=== PATIENT | male | born 1980 | race Two or more races ===

== ENCOUNTER 2017-02-15 18:17 | Emergency (ER) | payer MEDICAID ==
[~2017-02-15] VITALS: Ht 170.2 cm; Wt 74.8 kg
[2017-02-15 18:17] VITALS: BP 169/117
[~2017-02-15 18:17] MED LIST: DIPH25CA83 PO
[2017-02-15] MEDS ORDERED: LIDOCAINE HCL/PF 1% 30 ML SDV ONE (19:11)
[2017-02-15] MEDS ORDERED: TDAP [DIPH/PERTUSSIS/TET] 0.5 ML VIAL IM ONE (19:12)
[2017-02-15] MEDS ORDERED: ACETAMINOPHEN ES 500 MG TABLET ONE (19:12)
[2017-02-15] MEDS: ACETAMINOPHEN ES 500 MG TABLET PO ONE (19:23)
[2017-02-15] MEDS: TDAP [DIPH/PERTUSSIS/TET] 0.5 ML VIAL IM ONE (19:23)
[2017-02-15] MEDS: BACI/NEOM/POLY B OINT PKT 1 UDPKT PACKET TP ONE (19:44)
[2017-02-15] MEDS: LIDOCAINE HCL/PF 1% 30 ML VIAL TP ONE (19:44)
== END 2017-02-15 19:46 | disposition home or self-care (01) ==
LOC: ER 18:20
DX: S01.81XA Laceration without foreign body of other part of head, initial encounter (principal); F10.20 Alcohol dependence, uncomplicated; F17.210 Nicotine dependence, cigarettes, uncomplicated; W18.30XA Fall on same level, unspecified, initial encounter; Y93.89 Activity, other specified; Y92.89 Other specified places as the place of occurrence of the external cause; Y99.8 Other external cause status
CPT/HCPCS: 90715; A4606; A6402; J3490; Z7610

== ENCOUNTER 2017-02-22 15:58 | Emergency (ER) | payer MEDICAID ==
[~2017-02-22] VITALS: Ht 172.7 cm; Wt 74.8 kg
[2017-02-22 15:58] VITALS: BP 151/99
== END 2017-02-22 16:40 | disposition home or self-care (01) ==
LOC: ER 16:01
DX: S01.01XD Laceration without foreign body of scalp, subsequent encounter (principal); X58.XXXD Exposure to other specified factors, subsequent encounter; F17.200 Nicotine dependence, unspecified, uncomplicated
CPT/HCPCS: 29125; 99283; A4606; Z7610

== ENCOUNTER 2020-03-20 09:07 | Emergency (ER) | payer MEDICAID, OTHER ==
[~2020-03-20] VITALS: Ht 172.7 cm; Wt 81.6 kg
[2020-03-20 09:17] VITALS: BP 120/72
--- NOTE | 2020-03-20 09:50 | NUR ---
Patient discharged to home in stable condition. Written and verbal after care instructions given. Patient verbalizes understanding of instruction.
== END 2020-03-20 09:52 | disposition home or self-care (01) ==
LOC: ER 09:09
DX: H92.01 Otalgia, right ear (principal); F17.200 Nicotine dependence, unspecified, uncomplicated; Z79.899 Other long term (current) drug therapy

== ENCOUNTER 2022-04-04 16:30 | Emergency (ER) | payer MEDICAID ==
[~2022-04-04] VITALS: Ht 167.6 cm; Wt 74.8 kg
--- NOTE | 2022-04-04 16:46 | NUR ---
BIBS C/O ABDOMINAL PAIN X1 WEEK, WORSE TODAY. ABDOMINAL PAIN IS 6/10 ON PAIN SCALE AND LOCATION MID ABDOMINAL. PT STATED HE FEELS NAUSEOUS AT TIME AND HAS GENERALIZED WEAKNESS. PT RECENTLY WAS DIAGNOSED WITH HYPERTENSION AND STARTED MEDICATION PER PCP. AWAITING MD RUBIN.
[2022-04-04] MEDS ORDERED: KETOROLAC TROMETHAMINE INJ 30 MG/ML VIAL IV ONE (17:00)
[2022-04-04] MEDS ORDERED: IV NS 0.9% 1,000 ML BAG IV ONE (17:00)
[2022-04-04] MEDS ORDERED: METOCLOPRAMIDE HCL 10 MG/2 ML VIAL IV ONE (17:00)
[2022-04-04] MEDS ORDERED: METOCLOPRAMIDE HCL 10 MG/2 ML VIAL ONE (17:02)
[2022-04-04] MEDS ORDERED: KETOROLAC TROMETHAMINE 15 MG/ML VIAL ONE (17:02)
--- NOTE | 2022-04-04 17:10 | NUR ---
IV ESTABLISHED R AC 18G. LABS DRAWN AND COLLECTED AT BEDSIDE.
--- NOTE | 2022-04-04 17:18 | NUR ---
PT TAKEN TO CT VIA [facility]
--- NOTE | 2022-04-04 17:26 | NUR ---
PT RETURNED FROM CT VIA [facility]
[2022-04-04 17:40] LABS: BASOPHILS % (AUTO) 0.2 % (0.0-2.0); EOSINOPHILS % (AUTO) 0.8 % (0.0-6.0); HEMATOCRIT 44 % (39-51); HEMOGLOBIN 14.6 g/dL (13.5-17.5); LYMPHOCYTES # (AUTO) 1.1 K/uL (0.8-4.8); LYMPHOCYTES % (AUTO) 9.6 % (20.0-44.0); MEAN CORPUSCULAR HGB CONC 34 g/dl (31.0-36.0); MEAN CORPUSCULAR VOLUME 88 fL (80-96); MONOCYTES # (AUTO) 0.9 K/uL (0.1-1.30); MONOCYTES % (AUTO) 7.7 % (2.0-12.0); NEUTROPHILS # (AUTO) 9.1 K/uL (1.8-8.9); NEUTROPHILS % (AUTO) 81.7 % (43.0-81.0); PLATELET COUNT (AUTO) 297 K/uL (150-450); RED BLOOD CELL COUNT(AUTO) 4.94 MIL/uL (4.5-6.0); WHITE BLOOD COUNT (AUTO) 11.1 K/uL (4.3-11.0)
--- NOTE | 2022-04-04 17:41 | NUR ---
URINE COLLECTED AND SENT
[2022-04-04 18:06] LABS: BILIRUBIN,URINE NEGATIVE (NEGATIVE); COLOR,URINE YELLOW (YELLOW); LEUKOCYTE ESTERASE ,URINE NEGATIVE (NEGATIVE); NITRITE, URINE NEGATIVE (NEGATIVE); PROTEIN,URINE NEGATIVE (NEGATIVE); UGLUCOSE NEGATIVE (NEGATIVE); UROBILINOGEN,URINE 0.2 EU/dL (0.2)
[2022-04-04 18:36] LABS: ALANINE AMINOTRANSFERASE 29 U/L (12-78); ALBUMIN 4.1 g/dL (3.4-5.0); ALKALINE PHOSPHATASE 61 U/L (46-116); ASPARTATE AMINOTRANSFERASE 16 U/L (15-37); BILIRUBIN,DIRECT 0.1 mg/dL (0.0-0.2); BILIRUBIN,TOTAL 0.4 mg/dL (0.2-1.0); CHLORIDE 104 mmol/L (98-107); CREATININE 1.2 mg/dL (0.6-1.3); GLUCOSE 107 mg/dL (74-106); LIPASE 124 U/L (73-393); SODIUM SERUM 138 mmol/L (136-145); TOTAL PROTEIN, SERUM 7.7 g/dL (6.4-8.2); UREA NITROGEN, BLOOD 15 mg/dL (7-18)
--- NOTE | 2022-04-04 19:35 | NUR ---
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
[2022-04-04 20:36] LABS: CARBON DIOXIDE 20 mmol/L (21-32)
[2022-04-04 20:37] LABS: CALCIUM, SERUM 9.6 mg/dL (8.5-10.1)
[2022-04-04 21:26] VITALS: BP 110/80
--- NOTE | 2022-04-04 21:26 | NUR ---
Patient discharged to home in stable condition. Written and verbal after care instructions given. Patient verbalizes understanding of instruction.
== END 2022-04-04 21:29 | disposition home or self-care (01) ==
LOC: ER 16:34
DX: R51.9 Headache, unspecified (principal); I10 Essential (primary) hypertension; E78.00 Pure hypercholesterolemia, unspecified; F17.200 Nicotine dependence, unspecified, uncomplicated; Z79.899 Other long term (current) drug therapy
CPT/HCPCS: 36415; 70450; 71045; 80048; 80076; 81003; 83690; 84484 ×2; 85025; 93005; 96361; 96374; 96375; 99285; J1885; J2765; J7030